=== PATIENT | female | born 1970 | race Caucasian/White ===

== ENCOUNTER → 2016-05-03 | Outpatient (CLI) | payer OTHER ==
[~2016-05-03] MED LIST: CIPRO500 MG PO; IBUPROFEN800 MG PO; LIPITOR TAB 2020 MG PO; NEURONTIN 300300 MG PO; NORCO 5-325 TA1 EACH PO; PAXIL20 MG PO; PHENERGAN 25 MG25 M1 PO; PHENTERMINE H37.5 M1 PO; TOPAMAX50 MG PO; VITAMIN D350000 UNIT PO; VOLTAREN EC 7575 MG PO
== END ==
LOC: RAD 13:23
DX: M54.16 Radiculopathy, lumbar region (principal); M51.36 Other intervertebral disc degeneration, lumbar region; Z88.0 Allergy status to penicillin
CPT/HCPCS: 72100

== ENCOUNTER → 2016-05-21 | Outpatient (CLI) | payer OTHER | LOC: KOH-I 05-17 14:30 | DX: M54.16 Radiculopathy, lumbar region (principal); M51.36 Other intervertebral disc degeneration, lumbar region; M51.06 Intervertebral disc disorders with myelopathy, lumbar region | CPT/HCPCS: 72148 ==

== ENCOUNTER → 2016-05-28 | Outpatient (CLI) | payer OTHER | LOC: RAD 13:41 → LBRF 13:41 | DX: R35.0 Frequency of micturition (principal); M25.551 Pain in right hip | CPT/HCPCS: 73502; 87086 ==